=== PATIENT | female | born 1995 | race Two or more races ===

== ENCOUNTER 2025-05-23 06:27 | Outpatient (CLI) | payer OTHER ==
[2025-05-23 07:11] LABS: BASO % 0.4 % (0.1-1.2); EOS # 0.17 (0.04-0.54); EOS % 2.5 % (0.7-7.0); LYMPH # 2.74 (1.18-3.74); LYMPH % 39.8 % (19.3-53.1); MEAN PLATELET VOLUME 9.80 fl (9.4-12.4); MONO # 0.58 (0.24-0.82); MONO % 8.4 % (4.7-12.5); NEUT # 3.34 (1.56-6.13); NEUT % 48.6 % (34.0-71.1); RED CELL DISTRIBUTION WIDTH 12.3 % (11.6-14.4)
[2025-05-23 07:36] LABS: URINE APPEARANCE Clear; URINE BILIRRUBIN Negative (NEGATIVE); URINE BLOOD Negative; URINE COLOR Yellow; URINE GLUCOSE Negative (NEGATIVE); URINE KETONE Negative (NEGATIVE); URINE LEUKOCYTE Negative; URINE NITRATE Negative; URINE PROTEIN Negative (NEGATIVE); URINE UROBILINOGEN 0.2 E.U./dl
[2025-05-23 07:39] LABS: URINE BACTERIA 33.1 uL (0.0-1933); URINE EPITHELIAL CELLS 5.9 uL (0.0-38.8); URINE RBC 2.6 uL (0.0-20.8); URINE WBC 4.1 uL (0.0-23.2)
[2025-05-23 08:07] LABS: ALT/SGPT 51.0 U/L (12-78); AST/SGOT 21.0 U/L (15-37); BILIRUBIN TOTAL 0.41 mg/dL (0.3-1.2); BUN CREA RATIO 21.0 (7.0-25.0); CHOL HDL RATIO 4.8 (0-5.0); CREATININE SERUM 0.68 mg/dL (0.55-1.02); GFR 103.03; GLOBULINA 4.6 G/DL (2.4-3.5); GLUCOSE FASTING 94.0 mg/dL (65-100); HDL 33.0 mg/dl (40-60); LDL 107.0 mg/dl (0-130); OSMOLALITY SERUM 281.0 MOSM/KG (275-295); T4 FREE 0.89 NG/ML (0.76-1.46); TSH 2.79 uIU/mL (0.358-3.74); VLDL 19.0 (0-39)
[2025-05-23 08:13] LABS: URINE CAST 0.00 uL (0.0-1.40)
[2025-05-23 10:29] LABS: T3 TOTAL 1.25 ng/ml (0.846-2.02); VITAMIN D3 25 HYDROXY 29.86 ng/ml (30-120)
[2025-05-24 10:10] LABS: HSV I IGG TYPE SPECIFIC Reactive (Non Reactive); hav igm Negative (Negative); hep b c Negative (Negative); hep b s ag Negative (Negative)
[2025-05-25 08:06] LABS: chla t Negative (Negative); neiss Negative (Negative)
== END 2025-05-23 06:33 | disposition home or self-care (01) ==
LOC: LAB 06:27
DX: M81.0 Age-related osteoporosis without current pathological fracture (principal); D64.9 Anemia, unspecified; R10.9 Unspecified abdominal pain; E11.9 Type 2 diabetes mellitus without complications; E78.00 Pure hypercholesterolemia, unspecified; R80.9 Proteinuria, unspecified; E03.9 Hypothyroidism, unspecified; N39.0 Urinary tract infection, site not specified; B17.9 Acute viral hepatitis, unspecified; A74.9 Chlamydial infection, unspecified; B00.9 Herpesviral infection, unspecified; B20 Human immunodeficiency virus [HIV] disease; Z11.3 Encounter for screening for infections with a predominantly sexual mode of transmission

== ENCOUNTER 2025-05-25 16:54 | Inpatient (IN) | payer OTHER ==
[~2025-05-25] VITALS: Ht 157.5 cm; Wt 83.9 kg
[2025-05-25] MEDS ORDERED: ONDANSETRON HCL 2 MG/ML VIAL IV STA (17:32)
[2025-05-25] MEDS ORDERED: FAMOTIDINE/PF 20 MG/2 ML VIAL IV STA (17:32)
[2025-05-25] MEDS ORDERED: 0.9 % SODIUM CHLORIDE 1,000 ML IV SCH ×4 (17:45→22:00)
[2025-05-25] MEDS ORDERED: ONDANSETRON HCL 2 MG/ML VIAL ONE (18:13)
[2025-05-25] MEDS ORDERED: FAMOTIDINE/PF 20 MG/2 ML VIAL ONE (18:13)
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
--- NOTE | 2025-05-25 19:34 | NUR ---
ELLEN ADAMS EDUCA ACERCA DE [place] ORDENADO, CANALIZA Y COLECTA MUESTRAS DE LABORATORIO MEDIANTE MEDIDAS ASEPTICAS. RAHEL ENVASE DE UA. ADMINISTRA MEDICAMENTOS JOSE ORDEN MEDICA.
[2025-05-25 19:46] LABS: BASO % 0.2 % (0.1-1.2); EOS # 0.00 (0.04-0.54); EOS % 0.0 % (0.7-7.0); LYMPH # 2.02 (1.18-3.74); LYMPH % 16.0 % (19.3-53.1); MEAN PLATELET VOLUME 9.50 fl (9.4-12.4); MONO # 0.80 (0.24-0.82); MONO % 6.3 % (4.7-12.5); NEUT # 9.70 (1.56-6.13); NEUT % 77.0 % (34.0-71.1); RED CELL DISTRIBUTION WIDTH 12.9 % (11.6-14.4)
[2025-05-25 20:06] LABS: ERYTHROCYTE SEDIMENTATION RATE 90 mm/hr (0-20)
[2025-05-25 20:12] LABS: INR 1.04
[2025-05-25 20:29] LABS: ALT/SGPT 93.0 U/L (12-78); AST/SGOT 145.0 U/L (15-37); BILIRUBIN TOTAL 0.63 mg/dL (0.3-1.2); BUN CREA RATIO 14.0 (7.0-25.0); CREATININE SERUM 0.69 mg/dL (0.55-1.02); GFR 101.3; GLOBULINA 5.0 G/DL (2.4-3.5); GLUCOSE FASTING 112.0 mg/dL (65-100); OSMOLALITY SERUM 274.0 MOSM/KG (275-295)
[2025-05-25 20:32] LABS: PHOSPHOKINASE CREATININE 4820.0 U/L (26-192)
[2025-05-25] MEDS ORDERED: ACETAMINOPHEN 500 MG GEL..CAP PO SCH (21:53)
[2025-05-25] MEDS ORDERED: ONDANSETRON HCL 4 MG in 0.9 % SODIUM CHLORIDE 50 ML IV PRN (22:00)
[2025-05-26 00:55] LABS: URINE APPEARANCE Clear; URINE BILIRRUBIN Negative (NEGATIVE); URINE BLOOD Large; URINE COLOR Orange; URINE GLUCOSE Negative (NEGATIVE); URINE KETONE Negative (NEGATIVE); URINE LEUKOCYTE Small; URINE NITRATE Negative; URINE UROBILINOGEN 1.0 E.U./dl
[2025-05-26 01:18] LABS: URINE EPITHELIAL CELLS 34.0 uL (0.0-38.8); URINE RBC 1273.1 uL (0.0-20.8); URINE WBC 72.5 uL (0.0-23.2)
[2025-05-26 01:58] LABS: URINE CAST 0.00 uL (0.0-1.40); URINE PROTEIN 100 (NEGATIVE)
[2025-05-26] MEDS ORDERED: ACETAMINOPHEN 500 MG GEL..CAP PO ONE (02:09)
[2025-05-26 02:10] LABS: COCAINE NEGATIVE (NEGATIVE); METHADONE NEGATIVE (NEGATIVE); OPIATES POSITIVE (NEGATIVE)
[2025-05-26 02:14] LABS: THC ( Cannabinoids) POSITIVE (NEGATIVE)
[2025-05-26] MEDS ORDERED: MORPHINE SULFATE 2 MG/ML SYRINGE IV PRN (02:15)
[2025-05-26 04:07] VITALS: BP 120/76; O2SAT 96
[2025-05-26 06:19] LABS: BASO % 0.2 % (0.1-1.2); EOS # 0.02 (0.04-0.54); EOS % 0.2 % (0.7-7.0); LYMPH # 2.82 (1.18-3.74); LYMPH % 29.6 % (19.3-53.1); MEAN PLATELET VOLUME 10.10 fl (9.4-12.4); MONO # 0.81 (0.24-0.82); MONO % 8.5 % (4.7-12.5); NEUT # 5.84 (1.56-6.13); NEUT % 61.3 % (34.0-71.1); RED CELL DISTRIBUTION WIDTH 12.8 % (11.6-14.4)
[2025-05-26 06:56] LABS: INR 1.01
[2025-05-26 07:17] LABS: BUN CREA RATIO 14.0 (7.0-25.0); CREATININE SERUM 0.58 mg/dL (0.55-1.02); GFR 123.79; GLUCOSE FASTING 96.0 mg/dL (65-100); OSMOLALITY SERUM 278.0 MOSM/KG (275-295)
[2025-05-26 09:00] VITALS: BP 111/64; O2SAT 97
[2025-05-26 18:46] VITALS: BP 117/78; O2SAT 98
[2025-05-27 02:46] VITALS: BP 114/76; O2SAT 96
[2025-05-27 06:48] LABS: BUN CREA RATIO 15.0 (7.0-25.0); CREATININE SERUM 0.54 mg/dL (0.55-1.02); GFR 134.43; GLUCOSE FASTING 94.0 mg/dL (65-100); OSMOLALITY SERUM 277.0 MOSM/KG (275-295)
[2025-05-27 08:53] VITALS: BP 111/68; O2SAT 97
== END 2025-05-27 15:43 | disposition home or self-care (01) | DRG 558 ==
LOC: ER 16:55 → MEDI 21:45
PROVIDERS: Physician Assistant Medical; ADMIT Internal Medicine; ATTEND Internal Medicine
PROC: BW24YZZ Computerized Tomography (CT Scan) of Chest and Abdomen using Other Contrast (ICD-10-PCS; principal; 2025-05-25)
PROC: B020ZZZ Computerized Tomography (CT Scan) of Brain (ICD-10-PCS; 2025-05-25)
PROC: BW21YZZ Computerized Tomography (CT Scan) of Abdomen and Pelvis using Other Contrast (ICD-10-PCS; 2025-05-25)
PROC: BR20ZZZ Computerized Tomography (CT Scan) of Cervical Spine (ICD-10-PCS; 2025-05-25)
PROC: BR29ZZZ Computerized Tomography (CT Scan) of Lumbar Spine (ICD-10-PCS; 2025-05-25)
DX: M62.82 Rhabdomyolysis (principal); T07.XXXA Unspecified multiple injuries, initial encounter; V87.7XXA Person injured in collision between other specified motor vehicles (traffic), initial encounter